=== PATIENT | male | born 1980 | race Two or more races ===

== ENCOUNTER 2020-02-07 09:26 | Outpatient (REF) | payer MEDICAID, SELFPAY ==
[2020-02-07 10:15] LABS: Hematocrit 45.8 % (42-52); Hemoglobin 15.4 g/dl (14.0-18.0); Mean Corpuscular HGB Conc 33.6 g/dl (31.0-36.0); Mean Corpuscular Hemoglobin 30.3 pg (27.0-33.0); Mean Corpuscular Volume 90.2 fL (80-98); Mean Platelet Volume 11.7 fL (9.4-12.4); Platelet Count 226 X10*3/uL (160-400); Red Blood Count 5.08 X10*6/uL (4.60-5.80); Red Cell Distribution Width 12.9 % (11.0-16.0); White Blood Count 6.6 X10*3/uL (4.8-10.8)
[2020-02-07 10:29] LABS: Estimated Average Glucose 108 mg/dL; Hemoglobin A1c % 5.4 %
[2020-02-07 10:44] LABS: Cholesterol 167 mg/dL; Glucose Random 108 mg/dL (60-115); HDL Cholesterol 36 mg/dL; LDL Cholesterol Calculated 111 mg/dl; Triglycerides 104 mg/dL
[2020-02-07 11:07] LABS: TSH reflex Free T4 0.79 mIU/mL (0.32-4.0)
== END 2020-02-07 09:27 | disposition home or self-care (01) ==
LOC: HO.LAB 09:26
PROVIDERS: PCP Nurse Practitioner Family; Visit Provider Nurse Practitioner Family
DX: H52.13 Myopia, bilateral (principal); K59.00 Constipation, unspecified
CPT/HCPCS: 36415; 80061; 82306; 82947; 83036; 84443; 85027

== ENCOUNTER → 2020-02-10 12:59 | Outpatient (BNVA) | payer MEDICAID, SELFPAY | PROVIDERS: PCP Nurse Practitioner Family; Referring Provider Nurse Practitioner Family; Visit Provider Nurse Practitioner | DX: K59.04 Chronic idiopathic constipation (principal); K62.6 Ulcer of anus and rectum; Z80.0 Family history of malignant neoplasm of digestive organs; Z98.890 Other specified postprocedural states | CPT/HCPCS: 99213 ==

== ENCOUNTER 2020-03-05 10:52 | Emergency (ER) | payer MEDICAID, SELFPAY ==
[2020-03-05 11:10] VITALS: BP 151/79; PULSE 71; RESP 18; TEMP 36.7; O2SAT 98; BMI 32.5
--- NOTE | 2020-03-05 11:17 | US_ITS ---
EXAMINATION: US VENOUS ULTRASOUND WITH DOPPLER LOWER EXTREMITY, LEFT CLINICAL INFORMATION: Edema and swelling COMPARISON: None TECHNIQUE: Ultrasound of the deep veins is performed from the hip to the calf with compression sonography and color and pulse Doppler assessment. Spectral analysis with color-flow imaging is performed. FINDINGS: There is normal venous compression and respiratory variation and augmented flow. The visualized common femoral vein, superficial femoral vein, profunda femoral vein, popliteal vein, and the trifurcation region shows no evidence of deep venous thrombosis. There is no significant popliteal fossa cyst. Incidentally, there are prominent inguinal lymph node measuring up to 3.8 x 2.2 x 0.9 cm and 3.8 x 2.7 x 0.9 cm. These nodes show eccentric cortical thickening. US/US venous duplex LE LT IMPRESSION: * No DVT demonstrated in the left lower extremity. * Nonspecific mildly enlarged inguinal lymph nodes may be reactive to the patient's edema, or could represent a local infectious/inflammatory or neoplastic process.
--- NOTE | 2020-03-05 11:18 | ED_ITS ---
HPI - Skin/Abscess/Foreign Bdy General Chief complaint: Skin/Abscess/Foreign Body Stated complaint: L LEG SWELLING PAIN Time Seen by Provider: 03/05/20 11:17 Source: patient Mode of arrival: ambulatory Limitations: no limitations History of Present Illness HPI narrative: patient presents to ED for left leg pain, erythema, slight swelling that has been occurring for the past week. Patient states pain, tenderness, and and erythema on lateral side of left leg with point of entry will try to pop the small pimple. Patient states now left ankle and foot is swollen. Patient states no chest pain or shortness of breath. Related Data Home Medications Medication Instructions Recorded Confirmed docusate sodium 50 mg capsule 50 mg PO BID 02/10/20 02/10/20 sennosides 8.6 mg capsule 17.2 mg PO DAILY cap 02/10/20 02/10/20 Previous Rx's Medication Instructions Recorded cephalexin [Keflex] 500 mg PO QID #28 cap 03/05/20 doxycycline monohydrate 100 mg PO BID #14 cap 03/05/20 naproxen 500 mg PO BID PRN #20 tab 03/05/20 Allergies Allergy/AdvReac Type Severity Reaction Status Date / Time No Known Allergies Allergy Verified 02/10/20 13:01 Review of Systems Constitutional: Constitutional: Reports as per HPI and Reports no additional constitutional complaints Eyes: Eyes: Reports as per HPI and Reports no additional eye complaints ENT: Reports system reviewed and no additional complaints, except as documented and Reports as per HPI Cardiovascular: Cardiovascular: Reports as per HPI, Reports no additional cardiovascular complaints, Denies chest pain, Denies chest pain at rest, Denies chest pain with activity, Denies Epigastric Pain, Denies syncope, Denies rapid heart rate, Denies pedal edema, Denies lightheadedness, Denies Loss of Consciousness, Denies dyspnea, Denies dyspnea on exertion, Denies orthopnea and Denies paroxysmal nocturnal dyspnea Respiratory: Respiratory: Reports as per HPI, Reports no additional respiratory complaints, Reports no additional respiratory complaints, Denies change in phlegm color, Denies chest congestion, Denies cough, Denies excessive phlegm production, Denies pain on inspiration, Denies pain with cough, Denies dyspnea and Denies dyspnea on exertion Gastrointestinal: Gastrointestinal: Reports as per HPI and Reports no additional gastrointestinal complaints Genitourinary: Genitourinary: Reports no additional male genitourinary complaints and Reports as per HPI Musculoskeletal: Musculoskeletal: Reports no additional musculoskeletal complaints and Reports as per HPI Neurologic: Reports system reviewed and no additional complaints, except as documented, Reports as per HPI and Denies syncope Psychiatric: Psychiatric: Reports no additional psychiatric complaints and Reports as per HPI [facility], [facility] Past Medical History Medical History (Updated 03/05/20 @ 12:08 by PRINCESS Kessler) Bleeding hemorrhoids Surgical History (Updated 02/10/20 @ 13:02 by NU Clark) Hx of colonoscopy No history of previous surgery Family History Family History (Updated 02/10/20 @ 13:03 by NU Clark) Father Colon cancer Mother NIDDY (non-insulin dependent diabetes mellitus in young) HTN (hypertension), benign Alzheimer disease Social History Social History (Updated 02/10/20 @ 13:04 by NU Clark) Household Members: Children Alcohol intake: current Alcohol intake frequency: does not drink Smoking Status: Current every day smoker Substance Use Type: Marijuana Advance Directives: No Advance Directives Information Provided: No Physical Exam Vital Signs: Vital Signs: Vital Signs Temp Pulse Resp BP Pulse Ox 03/05/20 11:10 98.1 F 71 18 151/79 H 98 Body Mass Index 32.5 Const: General: cooperative, healthy appearing, comfortable, no acute distress, well developed and alert Orientation/consciousness: oriented to person, oriented to place, oriented to time and patient oriented x3 HENMT: Head: Yes normal to inspection and Yes No palpable skull fracture present Eyes: General: appearance normal, both eyes and all related structures Visual Sorenson: normal visual sorenson by confrontation Neck: Neck: Yes normal visual inspection, Yes full ROM, Yes no lymphadenopathy and Yes no meningeal signs Chest: Chest palpation & inspection: normal inspection of the chest, normal palpation of entire chest wall and no localized rib tenderness Resp: Effort & Inspection: normal respiratory effort, not able to speak in complete sentences, normal respiratory pattern, no audible wheezes and no cough Auscultation: clear to auscultation bilaterally, no crackles, no rales, no rhonchi and no wheezes Percussion: percussion normal Cardio: Jugular venous distension: no JVD Heart sounds: S1 normal heart sound present and S2 normal heart sound present GI: Inspection: Yes normal to inspection, No Abdominal wall edema and No distended Palpation (GI): Soft to palpation, not firm, nontender, no guarding and not rigid : General: No CVA tenderness and Yes no CVA tenderness Back/Spine/Pelvis: Back: no CVA tenderness, No CVA tenderness and No back tenderness Skin: General skin exam: no rashes or lesions noted Trauma: no lacerations or abrasions Neuro: General: oriented to person, oriented to place, oriented to time, patient oriented x3, gait normal, no meningeal signs and CN's II-XI intact bilaterally Cranial nerves: Yes CN's II-XII intact bilaterally Extrem: Other: Left lower extremity lateral aspect positive for slight erythema with point of entry, and is hard to palpation. erythema spreads to posterior calf. Positive for swelling of left lower leg and ankle also. Right lower extremity normal and negative for swelling, erythema, point of entry, or tenderness. Left lower extremity: lower leg Details: erythema, tenderness and localized swelling Psych: Appearance: grossly normal and well kempt Course Course Course Narrative: Bedside ultrasound of area of erythema with point of entry negative for pus collection but positive for cobblestone presentation to indicate cellulitis. Due to swelling of lower extremity of ankle and leg patient will be sent for ultrasound to rule out DVT. Reevaluation(s) Reevaluation #1: Ultrasound negative for DVT. Patient will be discharged with antibiotics. Time: 12:08 MDM - Skin/Abscess/Foreign Bdy MDM Narrative Medical decision making narrative: left lower extremity cellulitis Discharge Plan Discharge Clinical Impression: Cellulitis of left leg Patient Disposition: Home, Self-Care Instructions: Cellulitis (ED) Additional Instructions: return to the ED for worsening swelling of left lower extremity, worsening redness, chest pain, shortness of breath, calf pain, development of red streaks, or any other concerning symptoms. Prescriptions: New cephalexin [Keflex] 500 mg capsule 500 mg PO QID Qty: 28 RF: 0 doxycycline monohydrate 100 mg capsule 100 mg PO BID Qty: 14 RF: 0 naproxen 500 mg tablet 500 mg PO BID PRN (Reason: pain) Qty: 20 RF: 0 No Action senna 8.6 mg capsule 17.2 mg PO DAILY RF: 0 Colace Clear 50 mg capsule 50 mg PO BID RF: 0 Interventions: ED Discharge Assessment Last Done: 03/05/20 12:29 Discharge Date/Time: 03/05/20 12:30 Print Language: Amharic
== END 2020-03-05 12:30 | disposition home or self-care (01) ==
PROVIDERS: Emergency Provider Emergency Medicine
DX: L03.116 Cellulitis of left lower limb (principal); R60.0 Localized edema; M79.605 Pain in left leg
CPT/HCPCS: 93971; 99283; 99284

== ENCOUNTER 2020-12-14 13:07 | Emergency (ER) | payer MEDICAID, SELFPAY ==
--- NOTE | ~2020-12-14 | XR_ITS ---
EXAMINATION: XR TIBIA AND FIBULA, RIGHT CLINICAL INFORMATION: Evaluate for osteomyelitis COMPARISON: None TECHNIQUE: AP and lateral views of the right tibia and fibula were obtained. FINDINGS: Soft tissue swelling of the right lower leg. Oval-shaped calcifications within the superficial soft tissues. No acute displaced fracture. No erosive changes to the tibia or fibula. XR/XR tibia fibula RT 2V IMPRESSION: No erosive or lytic changes to the tibia or fibula to suggest acute osteomyelitis. There is soft tissue swelling appreciated. Oval calcifications within the soft tissues are nonspecific but most commonly due to phleboliths.
[2020-12-14 13:33] VITALS: BP 132/75; PULSE 81; RESP 16; TEMP 37.6; O2SAT 97; BMI 35.2
--- NOTE | 2020-12-14 17:11 | ED.SKABFB ---
HPI - Skin/Abscess/Foreign Bdy General Chief complaint: Skin/Abscess/Foreign Body Stated complaint: wound check Time Seen by Provider: 12/14/20 16:57 Source: patient Mode of arrival: ambulatory Limitations: no limitations History of Present Illness HPI narrative: 40-year-old male previously healthy here with complaints of right lower extremity swelling, redness with wound with drainage. Fever up to 101 at home. Has noticed the wound for 4-5 days. Patient tells me he opened the site on his own and a lot of drainage came out. Continued pain and swelling and redness. Related Data Home Medications Medication Instructions Recorded Confirmed docusate sodium 50 mg capsule 50 mg PO BID 02/10/20 02/10/20 (Colace Clear) sennosides 8.6 mg capsule (senna) 17.2 mg PO DAILY cap 02/10/20 02/10/20 Previous Rx's Medication Instructions Recorded cephalexin 500 mg capsule (Keflex) 500 mg PO QID #28 cap 03/05/20 doxycycline monohydrate 100 mg 100 mg PO BID #14 cap 03/05/20 capsule naproxen 500 mg tablet 500 mg PO BID PRN #20 tab 03/05/20 cephalexin 500 mg capsule 500 mg PO BID #14 cap 12/14/20 doxycycline monohydrate 100 mg 100 mg PO BID #20 cap 12/14/20 capsule mupirocin 2 % topical ointment 1 appl TOPICAL BID #15 g 12/14/20 oxycodone 5 mg tablet 5 mg PO Q8H PRN #10 tab 12/14/20 Allergies Allergy/AdvReac Type Severity Reaction Status Date / Time No Known Allergies Allergy Verified 02/10/20 13:01 Review of Systems Review of Systems: Yes all other systems are reviewed and are negative Constitutional: Constitutional: Reports no additional constitutional complaints, Denies body ache(s), Denies chills, Denies fever(s), Denies headache(s) and Denies weakness Eyes: Eyes: Reports no additional eye complaints and Denies change in vision ENT: Reports system reviewed and no additional complaints, except as documented, Denies dizziness, Denies headache(s), Denies nasal congestion, Denies nasal discharge and Denies neck pain Cardiovascular: Cardiovascular: Reports no additional cardiovascular complaints, Denies chest pain, Denies leg edema and Denies dyspnea Respiratory: Respiratory: Reports no additional respiratory complaints, Denies cough and Denies dyspnea Gastrointestinal: Gastrointestinal: Reports no additional gastrointestinal complaints, Denies abdominal pain, Denies diarrhea, Denies nausea and Denies vomiting Genitourinary: Genitourinary: Denies urinary incontinence Musculoskeletal: Musculoskeletal: Reports no additional musculoskeletal complaints, Denies back pain, Denies arthralgias, Denies joint swelling, Denies neck pain, Denies numbness and Denies tingling Integumentary/Breasts: Skin/Breast: Reports system reviewed and no additional complaints, except as docu, Reports swelling, Reports erythema and Reports rash Neurologic: Reports system reviewed and no additional complaints, except as documented, Denies Abnormal speech present, Denies dizziness, Denies headache(s), Denies numbness, Denies tingling and Denies weakness PMFSH Past Medical History Attestation statement: The following information was validated with the patient. Source: old records reviewed and nursing notes reviewed Medical History Bleeding hemorrhoids Surgical History Hx of colonoscopy No history of previous surgery Family History Family History Father Colon cancer Mother NIDDY (non-insulin dependent diabetes mellitus in young) HTN (hypertension), benign Alzheimer disease Social History Social History Household Members: Children Alcohol intake: current Alcohol intake frequency: does not drink Cigarettes Per Day: 7 Substance Use Type: Marijuana Advance Directives: No Advance Directives Information Provided: Yes Physical Exam Vital Signs: Vital Signs: Last Vital Signs Temp 99.7 F 12/14/20 13:33 Pulse 77 12/14/20 19:33 Resp 16 12/14/20 19:33 BP 141/69 H 12/14/20 19:33 Pulse Ox 98 12/14/20 19:33 Body Mass Index 35.2 Const: General: cooperative, healthy appearing, comfortable and no acute distress Orientation/consciousness: patient oriented x3 Limitations: no limitations HENMT: Head: Yes normal to inspection Ears: hearing grossly normal bilaterally General nose exam: Normal external nose present Face and sinus: Yes normal facial exam Mouth: Normal oral and palatal mucosa present Throat: Yes posterior oropharynx normal Eyes: General: appearance normal, both eyes and all related structures Pupils: Equal, round and reactive pupils present Neck: Neck: Yes normal visual inspection Chest: Chest palpation & inspection: normal inspection of the chest Resp: Effort & Inspection: normal respiratory effort Auscultation: clear to auscultation bilaterally Cardio: Rate: regular rate Rhythm: regular rhythm Peripheral pulses: Peripheral pulses 2+ throughout GI: Inspection: Yes normal to inspection Palpation (GI): Soft to palpation and nontender Auscultation: normal bowel sounds Back/Spine/Pelvis: Thoracic/Lumbar Spine: thoracic and lumbar spine normal to inspection Skin: General skin exam: no rashes or lesions noted Neuro: General: patient oriented x3, no focal motor deficits and normal sensation to monofilament Cranial nerves: Yes Equal, round and reactive pupils present Cognition (Neuro): normal cognition Speech: No Abnormal speech present Gait exam (Neuro): Normal gait present Motor exam (neuro): 5/5 motor strength present throughout Extrem: Other: Tenderness noted.. Calf is supple with compressible compartments. Distal pulses palpated General: Yes normal to inspection Course Course Course Narrative: 40 yo male here with right lower extremity cellulitis with reports of feve up to 101 at home. Will need labs including blood cultures and lactic acid. At this time infection suspected. Antibiotics ordered. -1904-labs are unremarkable. There is no leukocytosis or shift. X-ray shows no acute finding. The patient is afebrile. He has been taking some amoxicillin he bought off the street for the last few days. The area was marked with a skin marker. A wound culture was sent. At this point I think the patient can go home on oral antibiotics and return for increasing redness,, swelling, pain or fever. Reviewed worrisome signs and symptoms of when to return to the emergency department. Comfortable discharge home. MDM - Skin/Abscess/Foreign Bdy Medical Records Attestation: I reviewed the patient's medical records. Lab Data Attestation: I reviewed the patient's lab results. Result diagrams: 12/14/20 17:02 12/14/20 17:02 Labs: Lab Results 12/14/20 12/14/20 12/14/20 Range/Units 17:02 17:02 17:20 WBC 10.4 (4.8-10.8) X10*3/uL RBC 4.62 (4.60-5.80) X10*6/uL Hgb 14.3 (14.0-18.0) g/dl Hct 41.0 L (42-52) % MCV 88.7 (80-98) fL MCH 31.0 (27.0-33.0) pg MCHC 34.9 (31.0-36.0) g/dl RDW 12.5 (11.0-16.0) % Plt Count 237 (160-400) X10*3/uL MPV 10.7 (9.4-12.4) fL Immature Gran % (Auto) 0.3 (0.0-0.4) % Neut % (Auto) 77.8 H (45-73) % Lymph % (Auto) 9.2 L (20-40) % King % (Auto) 10.3 (2-11) % Eos % (Auto) 2.0 (0-4) % Baso % (Auto) 0.4 (0-2) % Lymph # (Auto) 1.0 L (1.2-4.9) X10*3/uL King # (Auto) 1.1 (0.1-1.2) X10*3/uL Eos # (Auto) 0.2 (0.0-0.4) X10*3/uL Baso # (Auto) 0.0 (0.0-0.2) X10*3/uL Abs Immat Gran (auto) 0.03 (0.00-0.03) X10*3/uL Absolute Neuts (auto) 8.1 (2.0-8.3) X10*3/uL Absolute Nucleated RBC 0.000 (0.0-0.012) X10*3/uL Nucleated RBC % (auto) 0.0 (0.0-0.2) /100WBC Sodium 142 (135-145) mmol/L Potassium 3.8 (3.3-5.1) mmol/L Chloride 107 (96-108) mmol/L Carbon Dioxide 23 (22-29) mmol/L Anion Gap 16 (12-20) BUN 8 L (9-16) mg/dL Creatinine 0.85 (0.5-1.4) mg/dL Estim Creat Clear Calc 156.2 Estimated GFR > 60 Random Glucose 97 (60-115) mg/dL Lactic Acid 0.9 (0.5-2.0) mmol/L Calcium 9.1 (8.4-10.2) mg/dL Total Bilirubin 0.7 (0.0-1.0) mg/dL AST 18 (5-37) U/L ALT 23 (0-40) U/L Alkaline Phosphatase 89 (39-117) U/L Total Protein 7.4 (6.5-8.0) g/dL Albumin 4.0 (3.5-5.0) g/dL Imaging Data tibia/fibula xray: Attestation: I personally reviewed and interpreted this imaging study as follows: Radiologist's impression: FINDINGS: Soft tissue swelling of the right lower leg. Oval-shaped calcifications within the superficial soft tissues. No acute displaced fracture. No erosive changes to the tibia or fibula. XR/XR tibia fibula RT 2V IMPRESSION: No erosive or lytic changes to the tibia or fibula to suggest acute osteomyelitis. There is soft tissue swelling appreciated. Oval calcifications within the soft tissues are nonspecific but most commonly due to phleboliths. Discharge Plan Discharge Clinical Impression: Cellulitis Patient Disposition: Home, Self-Care Instructions: Cellulitis (ED) Additional Instructions: Warm compresses Monitor the site and return for increasing swelling, redness, pain or fever >100.4. The area was marked with a skin marker for guidance and pictures were put in your chart Prescriptions: New doxycycline monohydrate 100 mg capsule 100 mg PO BID Qty: 20 RF: 0 cephalexin 500 mg capsule 500 mg PO BID Qty: 14 RF: 0 mupirocin 2 % ointment 1 appl topical BID Qty: 15 RF: 0 oxycodone 5 mg tablet 5 mg PO Q8H PRN (Reason: pain) Qty: 10 RF: 0 No Action cephalexin [Keflex] 500 mg capsule 500 mg PO QID Qty: 28 RF: 0 doxycycline monohydrate 100 mg capsule 100 mg PO BID Qty: 14 RF: 0 naproxen 500 mg tablet 500 mg PO BID PRN (Reason: pain) Qty: 20 RF: 0 senna 8.6 mg capsule 17.2 mg PO DAILY RF: 0 Colace Clear 50 mg capsule 50 mg PO BID RF: 0 Referrals: [facility] [Primary Care Provider] - 2 days Interventions: ED Discharge Assessment Last Done: 12/14/20 19:41 Discharge Date/Time: 12/14/20 19:42
[2020-12-14 17:25] LABS: MANUAL DIFF FLAG NO
[2020-12-14 17:29] LABS: Basophils Percent Auto 0.4 % (0-2); Eosinophils Absolute Auto 0.2 X10*3/uL (0.0-0.4); Hemoglobin 14.3 g/dl (14.0-18.0); Imm Gran Abs Auto 0.03 X10*3/uL (0.00-0.03); Imm Gran Pct Auto 0.3 % (0.0-0.4); Lymphocytes Percent Auto 9.2 % (20-40); Mean Corpuscular HGB Conc 34.9 g/dl (31.0-36.0); Mean Corpuscular Volume 88.7 fL (80-98); Mean Platelet Volume 10.7 fL (9.4-12.4); Monocytes Absolute Auto 1.1 X10*3/uL (0.1-1.2); Monocytes Percent Auto 10.3 % (2-11); Neutrophils Absolute Auto 8.1 X10*3/uL (2.0-8.3); Neutrophils Percent Auto 77.8 % (45-73); Platelet Count 237 X10*3/uL (160-400); Red Blood Count 4.62 X10*6/uL (4.60-5.80); Red Cell Distribution Width 12.5 % (11.0-16.0); White Blood Count 10.4 X10*3/uL (4.8-10.8)
[2020-12-14] MEDS: Morphine Sulfate 4 MG/ML CARTRIDGE IVPUSH (17:30)
[2020-12-14] MEDS: Piperacillin Sodium/Tazobactam 3.375 GM in 0.9 % Sodium Chloride 50 ML IV (17:48)
[2020-12-14 18:02] LABS: Lactic Acid 0.9 mmol/L (0.5-2.0)
[2020-12-14 18:03] LABS: Alanine Aminotransferase 23 U/L (0-40); Alkaline Phosphatase 89 U/L (39-117); Anion Gap 16 (12-20); Aspartate Amino Transferase 18 U/L (5-37); Bilirubin Total 0.7 mg/dL (0.0-1.0); Blood Urea Nitrogen 8 mg/dL (9-16); Calcium 9.1 mg/dL (8.4-10.2); Carbon Dioxide 23 mmol/L (22-29); Chloride 107 mmol/L (96-108); Creatinine Clr Calc Pharmacy 156.2; Estimated Glomerular Filt Rate > 60; Glucose Random 97 mg/dL (60-115); Potassium 3.8 mmol/L (3.3-5.1); Sodium 142 mmol/L (135-145); Total Protein 7.4 g/dL (6.5-8.0)
[2020-12-14 19:33] VITALS: BP 141/69; PULSE 77; RESP 16; O2SAT 98
== END 2020-12-14 19:42 | disposition home or self-care (01) ==
PROVIDERS: Nurse Practitioner Family; Emergency Provider Emergency Medicine Emergency Medical Services
DX: L03.115 Cellulitis of right lower limb (principal); M79.661 Pain in right lower leg; R50.9 Fever, unspecified
CPT/HCPCS: 36415; 73590; 80053; 83605; 85025; 87040; 87071; 87077; 87186; 87205; 96365; 96375; 99284; J2270; J2543

== ENCOUNTER 2020-12-25 13:55 | Outpatient (RCR) | payer MEDICAID, SELFPAY | END 2021-01-26 12:20 | disposition home or self-care (01) | LOC: HO.WCC 13:55 | PROVIDERS: Visit Provider Physician Assistant | DX: S80.861A Insect bite (nonvenomous), right lower leg, initial encounter (principal); L08.9 Local infection of the skin and subcutaneous tissue, unspecified; F17.210 Nicotine dependence, cigarettes, uncomplicated | CPT/HCPCS: 11042; 99212 ==

== ENCOUNTER 2021-09-06 09:45 | Outpatient (REF) | payer MEDICAID, SELFPAY ==
--- NOTE | ~2021-09-06 | XR_ITS ---
EXAMINATION: XR HAND, LEFT CLINICAL INFORMATION: Left hand pain COMPARISON: None TECHNIQUE: PA, lateral, and oblique views of the left hand. FINDINGS: Visualized portion of the distal radius and ulna demonstrate no fracture. There is mild ulnar negative variance. Carpal rows are maintained. No carpal, metacarpal or phalangeal fracture. No significant degenerative changes of the left hand. No focal soft tissue swelling. No radiopaque foreign body. XR/XR hand LT min 3V IMPRESSION: Unremarkable radiographs of the left hand.
== END 2021-09-06 09:46 | disposition home or self-care (01) ==
LOC: HO.XRAY 09:45
PROVIDERS: PCP Registered Nurse; Visit Provider Registered Nurse
DX: M25.542 Pain in joints of left hand (principal)
CPT/HCPCS: 73130

== ENCOUNTER 2022-01-24 08:57 | Outpatient (REF) | payer MEDICAID, SELFPAY ==
--- NOTE | 2022-01-24 08:30 | EMG_ITS ---
Bilateral median and ulnar motor and sensory studies were performed. Bilateral radial sensory study was performed and paraspinal muscles were tested with a needle. IMPRESSION: Moderately severe bilateral median neuropathy across carpal tunnel. MD ANAID Noriega/JENNIFER / [id number]
== END 2022-01-24 08:58 | disposition home or self-care (01) ==
LOC: HO.NEURO 08:57
PROVIDERS: Visit Provider Registered Nurse
DX: R20.2 Paresthesia of skin (principal)
CPT/HCPCS: 95886; 95911

== ENCOUNTER → 2022-03-20 08:05 | Outpatient (BNVA) | payer MEDICAID, SELFPAY | PROVIDERS: PCP Registered Nurse; Visit Provider Orthopaedic Surgery | DX: Z01.818 Encounter for other preprocedural examination (principal); G56.03 Carpal tunnel syndrome, bilateral upper limbs | CPT/HCPCS: 99202 ==

== ENCOUNTER → 2022-05-13 08:08 | Day surgery (SDC) | payer MEDICAID, SELFPAY ==
[2022-05-13 09:24] VITALS: BP 125/64; PULSE 56; RESP 16; TEMP 36.3; O2SAT 100; BMI 32.5
--- NOTE | 2022-05-13 10:17 | PC.NURSE ---
pt arrived at 0800 instead of scheduled 0930 arrival for procedure scheduled with Dr. Villasenor. Pt was upset and irriated about the 2 hour wait when brought into preop room. This RN did inform him that arrival time was 0930 for scheduled 1030 procedure. Pt concerned about recovery time/length as he cannot be out of work. Explained to him that Dr. Villasenor will see him prior to procedure with restrictions. Patient speaking on the phone becoming increasingly aggitated. Pt states I do not want this procedure, i have been waiting to long. This RN again informed patient that procedure is schedule for 1030 and that he did arrive early then needed. Pt removed gown and walked out of preop room. Dr. Villasenor aware.
== END ==
PROVIDERS: Visit Provider Orthopaedic Surgery
DX: G56.01 Carpal tunnel syndrome, right upper limb (principal); Z53.29 Procedure and treatment not carried out because of patient's decision for other reasons
CPT/HCPCS: J0171